=== PATIENT | male | born 1980 | race Caucasian/White ===

== ENCOUNTER 2021-02-12 09:28 | Outpatient (REF) | payer MEDICAID, SELFPAY ==
[2021-02-12 10:14] LABS: Hematocrit 42.4 % (42-52); Hemoglobin 14.5 g/dl (14.0-18.0); Mean Corpuscular HGB Conc 34.2 g/dl (31.0-36.0); Mean Corpuscular Hemoglobin 31.1 pg (27.0-33.0); Mean Platelet Volume 11.5 fL (9.4-12.4); Platelet Count 203 X10*3/uL (160-400); Red Blood Count 4.66 X10*6/uL (4.60-5.80); Red Cell Distribution Width 13.3 % (11.0-16.0); White Blood Count 7.4 X10*3/uL (4.8-10.8)
[2021-02-12 10:40] LABS: Alanine Aminotransferase 25 U/L (0-40); Albumin Level 4.4 g/dL (3.5-5.0); Alkaline Phosphatase 74 U/L (39-117); Anion Gap 11 (12-20); Aspartate Amino Transferase 16 U/L (5-37); Bilirubin Total 0.7 mg/dL (0.0-1.0); Blood Urea Nitrogen 16 mg/dL (9-16); Calcium 9.8 mg/dL (8.4-10.2); Carbon Dioxide 26 mmol/L (22-29); Chloride 110 mmol/L (96-108); Cholesterol 154 mg/dL; Estimated Glomerular Filt Rate > 60; Glucose Random 88 mg/dL (60-115); HDL Cholesterol 46 mg/dL; LDL Cholesterol Calculated 95 mg/dl; Potassium 4.2 mmol/L (3.3-5.1); Sodium 143 mmol/L (135-145); Total Protein 7.4 g/dL (6.5-8.0); Triglycerides 67 mg/dL
== END 2021-02-12 09:29 | disposition home or self-care (01) ==
LOC: HO.LAB 09:28
PROVIDERS: PCP Internal Medicine; Visit Provider Internal Medicine
DX: Z00.00 Encounter for general adult medical examination without abnormal findings (principal); I10 Essential (primary) hypertension
CPT/HCPCS: 36415; 80053; 80061; 84443; 85027

== ENCOUNTER → 2023-02-17 23:59 | Outpatient (BNV) | payer MEDICAID, SELFPAY ==
--- NOTE | 2023-04-08 21:12 | MHC.OFFVIS ---
Intake Intake Visit Reasons: Remote Device Check- [facility] Allergies codeine [CODEINE] Adverse Reaction (Unknown, Unverified 05/23/20 16:52) DIZZY FAINTS, memory problems [facility] Medical History (Updated 09/07/20 @ 16:08 by Ney Ruiz MD) Normally functioning cardiac pacemaker present Syncope and collapse Office Procedures Cardiac Device Check Cardiac Device Check Details: Date of service- 02/17/2023 ; Battery life >2 years; normal lead parameters; AP 3%; DATA WAREHOUSING SPECIALIST <1%; no significant arrhythmias. Overall normal device function. [id number] Cardiac Device Interrogation, pacemaker Procedure code (CPT) selection complete Assessment & Plan Assessment & Plan (1) Syncope and collapse: Code(s): R55 - Syncope and collapse (2) Normally functioning cardiac pacemaker present: Code(s): Z95.0 - Presence of cardiac pacemaker Coding Level of Care Code Procedure Only Diagnoses Syncope and collapse R55 Normally functioning cardiac pacemaker present Z95.0 CPT Codes Cardiac Device Check - Cardiac Device 12: [id number] Cardiac Device Interrogation, pacemaker ([id number])
== END ==
PROVIDERS: PCP Internal Medicine; Visit Provider Internal Medicine
DX: R55 Syncope and collapse (principal); Z95.0 Presence of cardiac pacemaker
CPT/HCPCS: 93294

== ENCOUNTER → 2023-12-28 23:59 | Outpatient (BNV) | payer SELFPAY ==
--- NOTE | 2023-12-29 12:42 | A.OFFVIS_ITS ---
Intake Visit Reasons: REmote Device check- [facility] Allergies codeine [CODEINE] Adverse Reaction (Unknown, Unverified 05/23/20 16:52) DIZZY FAINTS, memory problems [facility] Medical History (Updated 12/29/23 @ 12:43 by Ney Ruiz MD) Syncope and collapse Normally functioning cardiac pacemaker present Office Procedures Cardiac Device Check Cardiac Device Check Details: Date of service- 12/28/2023 ; Battery life 1.4 years; normal lead parameters; AP 1.9%; WARDROBE STYLIST <1%; no significant arrhythmias. Overall normal device function. [id number] Cardiac Device Interrogation, pacemaker Procedure code (CPT) selection complete Assessment & Plan Assessment & Plan (1) Sick sinus syndrome: Code(s): I49.5 - Sick sinus syndrome Category: Medical Plan: x Coding Level of Care Code Procedure Only Diagnoses Sick sinus syndrome I49.5 CPT Codes Cardiac Device Check - Cardiac Device 12: [id number] Cardiac Device Interrogation, pacemaker ([id number])
== END ==
PROVIDERS: PCP Internal Medicine; Visit Provider Internal Medicine
DX: I49.5 Sick sinus syndrome (principal); Z95.0 Presence of cardiac pacemaker
CPT/HCPCS: 93294

== ENCOUNTER → 2024-06-27 23:59 | Outpatient (BNV) | payer SELFPAY ==
--- NOTE | 2024-06-29 09:59 | A.OFFVIS_ITS ---
Intake Visit Reasons: Remote Device Check- [facility] Allergies codeine [CODEINE] Adverse Reaction (Unknown, Unverified 05/23/20 16:52) DIZZY FAINTS, memory problems [facility] Medical History (Updated 12/29/23 @ 12:43 by Ney Ruiz MD) Syncope and collapse Normally functioning cardiac pacemaker present Office Procedures Cardiac Device Check Cardiac Device Check Details: Date of service- 06/27/2024 ; Battery life >1 years; normal lead parameters; AP 4.2%; ASSISTANT PASSENGER LOCOMOTIVE ENGINEER <1 %; no significant arrhythmias. Overall normal device function. [id number]-Pqrcwd Cardiac Device Interrogation, pacemaker Procedure code (CPT) selection complete Assessment & Plan Assessment & Plan (1) Normally functioning cardiac pacemaker present: Code(s): Z95.0 - Presence of cardiac pacemaker Category: Medical (2) Sick sinus syndrome: Code(s): I49.5 - Sick sinus syndrome Category: Medical Plan x Coding Level of Care Code Procedure Only Diagnoses Normally functioning cardiac pacemaker present Z95.0 Sick sinus syndrome I49.5 CPT Codes Cardiac Device Check - Cardiac Device 12: [id number] Cardiac Device Interrogation, pacemaker ([id number])
== END ==
PROVIDERS: PCP Internal Medicine; Visit Provider Internal Medicine
DX: I49.5 Sick sinus syndrome (principal); Z95.0 Presence of cardiac pacemaker
CPT/HCPCS: 93294

== ENCOUNTER → 2024-09-26 23:59 | Outpatient (BNV) | payer SELFPAY ==
--- NOTE | 2024-09-28 16:26 | A.OFFVIS_ITS ---
Intake Visit Reasons: Remote Device Check- [facility] Allergies codeine [CODEINE] Adverse Reaction (Unknown, Unverified 05/23/20 16:52) DIZZY FAINTS, memory problems [facility] Medical History (Updated 09/28/24 @ 16:28 by Ney Ruiz MD) Syncope and collapse Normally functioning cardiac pacemaker present Office Procedures Cardiac Device Check Cardiac Device Check Details: Date of service- 09/26/2024 ; Battery life 12 months; normal lead parameters; AP 2.2%; FINISHER ACCORDION <1 %; PAF noted. Overall normal device function. [id number] Cardiac Device Interrogation, pacemaker Procedure code (CPT) selection complete Assessment & Plan Assessment & Plan (1) Normally functioning cardiac pacemaker present: Code(s): Z95.0 - Presence of cardiac pacemaker Category: Medical (2) Sick sinus syndrome: Code(s): I49.5 - Sick sinus syndrome Category: Medical (3) PAF (paroxysmal atrial fibrillation): Code(s): I48.0 - Paroxysmal atrial fibrillation Category: Medical Plan x Coding Level of Care Code Procedure Only Diagnoses Normally functioning cardiac pacemaker present Z95.0 Sick sinus syndrome I49.5 PAF (paroxysmal atrial fibrillation) I48.0 CPT Codes Cardiac Device Check - Cardiac Device 12: [id number] Cardiac Device Interrogation, pacemaker ([id number])
== END ==
PROVIDERS: PCP Internal Medicine; Visit Provider Internal Medicine
DX: I49.5 Sick sinus syndrome (principal); I48.0 Paroxysmal atrial fibrillation; Z95.0 Presence of cardiac pacemaker
CPT/HCPCS: 93294